=== PATIENT | female | born 2000 | race African-American/Black ===

== ENCOUNTER 2019-05-14 13:10 | Inpatient (IN) | payer MEDICAID ==
[~2019-05-14] VITALS: Ht 170.2 cm; Wt 59.0 kg
[2019-05-14] MEDS ORDERED: PNV1TABL76 MT (13:17)
[2019-05-14] MEDS ORDERED: DEXT 5%/LR + PITOCIN 20UNITS/L 1,000 ML IV ONE ×2 (13:30→13:36)
[2019-05-14] MEDS ORDERED: METHYLERGONOVINE MALEATE 0.2 MG/ML IM ONE (13:30)
[2019-05-14 13:37] LABS: BASOPHILS % 0.7 % (0.0-2.0); EOSINOPHILS % 0.1 % (0.0-5.0); HEMATOCRIT. 36.1 % (36.0-48.0); HEMOGLOBIN. 11.7 g/dL (12.0-16.0); LYMPHOCYTES % 10.2 % (20.0-50.0); MEAN CORPUSCULAR HEMOGLOBIN 28.8 pg (28.0-32.0); MEAN CORPUSCULAR VOLUME 88.7 fL (81.0-99.0); MEAN PLATELET VOLUME 9.6 fl (7.4-10.4); MONOCYTES % 5.2 % (2.0-8.0); NEUTROPHILS % 83.8 % (40.0-76.0); PLATELET 373 x1000/uL (130-400); RED BLOOD CELL COUNT 4.07 mill/uL (4.2-5.4); RED CELL DISTRIBUTION WIDTH 13.6 % (11.6-14.6)
[2019-05-14] MEDS ORDERED: LIDOCAINE HCL 1% 20ML VIAL (Pyxis) INJ ONE (13:41)
[2019-05-14 13:50] LABS: PARTIAL THROMBOPLASTIN TIME 29.5 sec (23.4-31.0)
[2019-05-14] MEDS ORDERED: LIDOCAINE HCL 1% 20ML VIAL (Pyxis) INJ INFIL ONE (14:00)
[2019-05-14 14:02] LABS: BG BASE EXCESS -4.3 mmol/L (-2.0-2.0); BG CARBOXYHEMOGLOBIN 1.1 % (0.5-1.5); BG DEOXYHEMOGLOBIN 31.5 % (0.0-5.0); BG FRACTION INSPIRED OXYGEN 21; BG HCO3 ACT 21.2 mmol/L (22.0-26.0); BG METHEMOGLOBIN 1.2 % (0.0-1.5); BG OXYGEN SATURATION 67.8 % (92.0-98.5); BG OXYHEMOGLOBIN 66.2 % (94.0-97.0); BG PCO2 40.7 mmHg (35.0-45.0); BG PH 7.335 (7.350-7.450); BG PO2 < 30.3 mmHg (75.0-100.0); BG SAMPLE SITE CORD; BG TOTAL HEMOGLOBIN 16.5 g/dL (12.0-18.0); BG VENT MODE ROOM AIR
[2019-05-14] MEDS ORDERED: DEXT 5%/LR + PITOCIN 20UNITS/L 1,000 ML IV SCH (14:03)
[2019-05-14 14:05] LABS: BG BASE EXCESS -8.6 mmol/L (-2.0-2.0); BG CARBOXYHEMOGLOBIN 1.2 % (0.5-1.5); BG DEOXYHEMOGLOBIN 56.5 % (0.0-5.0); BG FRACTION INSPIRED OXYGEN 21; BG HCO3 ACT 21.8 mmol/L (22.0-26.0); BG METHEMOGLOBIN 1.1 % (0.0-1.5); BG OXYGEN SATURATION 42.2 % (92.0-98.5); BG OXYHEMOGLOBIN 41.2 % (94.0-97.0); BG PCO2 64.4 mmHg (35.0-45.0); BG PH 7.147 (7.350-7.450); BG PO2 < 30.3 mmHg (75.0-100.0); BG SAMPLE SITE CORD; BG TOTAL HEMOGLOBIN 17.8 g/dL (12.0-18.0); BG VENT MODE ROOM AIR
[2019-05-14] MEDS ORDERED: RHO(D) IMMUNE GLOBULIN 300 MCG/SYR IM PRN (14:15)
[2019-05-14] MEDS ORDERED: LANOLIN OINT 7GM TUBE TOP PRN (14:15)
[2019-05-14] MEDS ORDERED: IBUPROFEN 400MG TABLET PO PRN (14:15)
[2019-05-14] MEDS ORDERED: DIPHENHYDRAMINE 25MG CAPSULE PO PRN (14:15)
[2019-05-14] MEDS ORDERED: BENZOCAINE/LANOLIN/ALOE VERA SPRAY TOP PRN (14:15)
[2019-05-14] MEDS ORDERED: ACETAMINOPHEN WITH CODEINE 300/30MG TABLET PO PRN (14:15)
[2019-05-14] MEDS ORDERED: GLYCERIN/WITCH HAZEL LEAF MEDICATED PAD TOP PRN (14:15)
[2019-05-14] MEDS ORDERED: HEMORRHOIDAL SUPP PR PRN (14:15)
[2019-05-14] MEDS ORDERED: BISACODYL 10MG SUPP PR PRN (14:15)
[2019-05-14] MEDS ORDERED: INFLUENZA VIRUS VACCINE(AFLURIA) 0.5ML SYR IM ONE (14:15)
[2019-05-14 14:16] LABS: HEPATITIS B SURFACE ANTIGEN NEGATIVE
[2019-05-14] MEDS ORDERED: TETANUS, DIPHTHERIA, PERTUSSIS VAC/PF 0.5ML (>7YR OLD) IM ONE (14:30)
[2019-05-14 16:20] VITALS: BP 115/65
[2019-05-14 17:20] VITALS: BP 126/76
[2019-05-14] MEDS: IBUPROFEN 800MG TABLET PO PRN (18:29)
[2019-05-14 20:00] VITALS: BP 112/72
[2019-05-14] MEDS: DOCUSATE SODIUM 100MG CAPSULE PO SCH (20:59)
[2019-05-14 21:21] LABS: CLARITY URINE TURBID (CLEAR); COLOR URINE RED (YELLOW); KETONES URINE NEGATIVE (NEGATIVE); LEUKOCYTE ESTERASE URINE 2+ (NEGATIVE); NITRITE URINE NEGATIVE (NEGATIVE); OCCULT BLOOD URINE 3+ (NEGATIVE); PROTEIN URINE 2+ (NEGATIVE); SPECIFIC GRAVITY URINE 1.011 (1.005-1.030)
[2019-05-14 21:40] LABS: *AMPHETAMINES SCREEN URINE NEGATIVE (NEGATIVE); *BARBITURATES SCREEN URINE NEGATIVE (NEGATIVE); *BENZODIAZEPINES SCREEN URINE NEGATIVE (NEGATIVE)
[2019-05-14 21:41] LABS: *COCAINE SCREEN URINE NEGATIVE (NEGATIVE); METHADONE URINE SCREEN NEGATIVE (NEGATIVE); OPIATES URINE SCREEN NEGATIVE (NEGATIVE); PHENCYCLIDINE URINE SCREEN NEGATIVE (NEGATIVE)
[2019-05-14 21:42] LABS: CANNABINOID URINE SCREEN NEGATIVE (NEGATIVE)
[2019-05-15 04:00] VITALS: BP 100/60
[2019-05-15 07:21] LABS: BASOPHILS % 0.1 % (0.0-2.0); EOSINOPHILS % 0.2 % (0.0-5.0); HEMOGLOBIN. 9.6 g/dL (12.0-16.0); LYMPHOCYTES % 15.9 % (20.0-50.0); MEAN CORPUSCULAR HEMOGLOBIN 28.9 pg (28.0-32.0); MEAN CORPUSCULAR VOLUME 87.3 fL (81.0-99.0); MEAN PLATELET VOLUME 9.3 fl (7.4-10.4); MONOCYTES % 9.8 % (2.0-8.0); PLATELET 265 x1000/uL (130-400); RED BLOOD CELL COUNT 3.32 mill/uL (4.2-5.4); RED CELL DISTRIBUTION WIDTH 13.5 % (11.6-14.6)
[2019-05-15 08:00] VITALS: BP 120/85
[2019-05-15] MEDS: FERROUS SULFATE 325MG TABLET PO SCH ×3 (09:54→17:40)
[2019-05-15] MEDS: PRENATAL VIT/FE FUMARATE/FA TABLET PO SCH (09:54)
[2019-05-15] MEDS: IBUPROFEN 800MG TABLET PO PRN ×2 (11:29→19:11)
[2019-05-15 15:20] VITALS: BP 109/67
[2019-05-15 19:50] VITALS: BP 113/74
[2019-05-15] MEDS: DOCUSATE SODIUM 100MG CAPSULE PO SCH (21:10)
[2019-05-16 04:15] VITALS: BP 97/52
[2019-05-16] MEDS: IBUPROFEN 800MG TABLET PO PRN (05:13)
[2019-05-16] MEDS ORDERED: IBUP-2028 PO (06:43)
[2019-05-16 07:43] VITALS: BP 93/51
[2019-05-16] MEDS: FERROUS SULFATE 325MG TABLET PO SCH (08:09)
[2019-05-16] MEDS: PRENATAL VIT/FE FUMARATE/FA TABLET PO SCH (08:09)
== END 2019-05-16 11:15 | disposition home or self-care (01) | DRG 560 ==
LOC: OBSVTOIN 13:10 → 8 EST LDRP 13:10 → 8EST 17:02
PROVIDERS: ADMIT Specialist; ATTEND Specialist
PROC: 10D07Z6 Extraction of Products of Conception, Vacuum, Via Natural or Artificial Opening (ICD-10-PCS; principal; 2019-05-14)
PROC: 0KQM0ZZ Repair Perineum Muscle, Open Approach (ICD-10-PCS; 2019-05-14)
DX: O69.0XX0 Labor and delivery complicated by prolapse of cord, not applicable or unspecified (principal); O62.2 Other uterine inertia; O70.1 Second degree perineal laceration during delivery; Z37.0 Single live birth; Z3A.38 38 weeks gestation of pregnancy; O66.5 Attempted application of vacuum extractor and forceps
CPT/HCPCS: 36415; 36600; 80305; 81003; 82375; 82805; 86592; 86703; 86762; 86850; 86900; 87340; 90686; 90715; 99281; G0378; J2590; J3490